=== PATIENT | male | born 1955 | race Caucasian/White ===

== ENCOUNTER 2018-03-05 08:02 | Emergency (ER) | payer OTHER ==
[~2018-03-05] VITALS: Ht 195.6 cm; Wt 111.1 kg
[~2018-03-05 08:02] MED LIST: DUTASTERIDE0.5 MG PO; FLAX; Percocet 5-3251 EACH PO; TAMS.4ER PO; Zofran Odt4 MG SL
[2018-03-05 08:34] LABS: BASOPHILS ABSOLUTE AUTO 0.03 K/mm3 (0.00-0.23); BASOPHILS PERCENT AUTO 1 % (0-2); EOSINOPHILS ABSOLUTE AUTO 0.03 K/mm3 (0.00-0.68); EOSINOPHILS PERCENT AUTO 1 % (0-6); Hematocrit 46.8 % (37.0-53.0); Hemoglobin 16.1 g/dL (13.5-17.5); IMMATURE GRAN ABSOLUTE AUTO 0.02 K/mm3 (0.00-0.10); IMMATURE GRAN PERCENT AUTO 0 % (0-1); LYMPHOCYTES ABSOLUTE AUTO 0.51 K/mm3 (0.84-5.20); LYMPHOCYTES PERCENT AUTO 8 % (21-46); MONOCYTES ABSOLUTE AUTO 0.63 K/mm3 (0.16-1.47); MONOCYTES PERCENT AUTO 10 % (4-13); Mean Corpuscular HGB 28.9 pg (26.0-34.0); Mean Corpuscular HGB Conc 34.4 g/dL (31.5-36.5); Mean Corpuscular Volume 84 fL (80-100); Mean Platelet Volume 10.4 fL (9.1-12.4); NEUTROPHILS ABSOLUTE AUTO 5.24 K/mm3 (1.96-9.15); NEUTROPHILS PERCENT AUTO 81 % (41-73); Platelet Count 189 K/mm3 (150-400); RDW Coefficient Variation 12.5 % (11.7-14.2); RDW Standard Deviation 37.8 fL (35.1-46.3); Red Blood Cell Count 5.57 M/mm3 (4.30-5.90); White Blood Cell Count 6.46 K/mm3 (4.00-11.30)
[2018-03-05] MEDS ORDERED: CLON.1 PO (08:44)
[2018-03-05 08:57] LABS: Albumin, Blood 3.5 g/dL (3.4-5.0); Albumin/Globulin Ratio 1.1 (0.8-1.8); Bilirubin, Total 1.2 mg/dL (0.1-1.0); Bun/Creatinine Ratio 18.5 (12.0-20.0); Creatinine, Blood 1.35 mg/dL (0.60-1.20); Globulin, Blood 3.3 g/dL (2.2-4.0); Potassium, Blood 4.1 mmol/L (3.5-5.5); Total Protein, Blood 6.8 g/dL (6.4-8.2)
[2018-03-05 10:04] LABS: Source, Urine Clean Catch
[2018-03-05 10:11] LABS: Bilirubin, Urine Neg (Neg); Blood, Urine 5+ (Neg); Glucose Qualitative, Urine Neg (Neg); Ketones, Urine 1+ (Neg); Leukocyte Esterase, Urine 1+ (Neg); Nitrite, Urine Neg (Neg); Protein, Urine 2+ (Neg); Urobilinogen, Urine NORM (Normal)
[2018-03-05 10:21] LABS: Appearance, Urine Hazy (Clear); Color, Urine Yellow (P-Yellow); Squamous Epithelial Cells Few /hpf (Few)
[2018-03-05 10:22] LABS: Bacteria Rare /hpf; Mucus Light (0-Heavy)
[2018-03-05] MEDS ORDERED: Cipro500 MG PO (10:36)
[2018-03-05] MEDS ORDERED: Percocet 5-3251 EACH PO (10:36)
== END 2018-03-05 11:17 | disposition home or self-care (01) ==
LOC: ER 08:02
PROVIDERS: Physician Assistant
DX: N13.2 Hydronephrosis with renal and ureteral calculous obstruction (principal); N12 Tubulo-interstitial nephritis, not specified as acute or chronic; I10 Essential (primary) hypertension
CPT/HCPCS: 36415; 74177; 80053; 81001; 83690; 85025; 87077; 87086; 87186; 96361; 96365; 96375; 96376; 99284-25; J0696; J1885; J2405; J3010; J7030; Q9967

== ENCOUNTER → 2020-11-23 | Outpatient (CLI) | payer OTHER ==
[~2020-11-23] MED LIST changes: +CLON.1 PO; +Cipro500 MG PO
== END | disposition home or self-care (01) ==
LOC: LAB SHORT 11:23
DX: D04.22 Carcinoma in situ of skin of left ear and external auricular canal (principal); L81.4 Other melanin hyperpigmentation; B88.0 Other acariasis
CPT/HCPCS: 88305

== ENCOUNTER → 2020-11-30 | Outpatient (CLI) | payer OTHER | LOC: LAB 12:00 → LAB SHORT 12:00 | DX: D48.5 Neoplasm of uncertain behavior of skin (principal) | CPT/HCPCS: 88305 ==

== ENCOUNTER → 2021-09-26 | Outpatient (CLI) | payer OTHER ==
[~2021-09-26] MED LIST changes: +Amlodipine Bes2.5 MG PO; +DUTA.5 PO
== END ==
LOC: LAB SHORT 07:00 → LAB 07:00 → LAB FUT 08-23 12:20
DX: N20.2 Calculus of kidney with calculus of ureter (principal)
CPT/HCPCS: 81050

== ENCOUNTER 2021-10-20 10:58 | Day surgery (SDC) | payer OTHER ==
[~2021-10-20] VITALS: Ht 195.6 cm; Wt 110.2 kg
--- NOTE | 2021-10-20 11:46 | NUR ---
10/20/21 1146 Mis Alejandro ATTEMPT IV X2 IN RFA & RH WITH 20G IV CATH. SUCCESSFUL IV IN RH BY [facility].JST. PT. TOLERATED WELL.
== END 2021-10-20 12:21 | disposition home or self-care (01) ==
LOC: ORSCSDS 10:58
PROVIDERS: Ophthalmology
PROC: 08RJ3JZ Replacement of Right Lens with Synthetic Substitute, Percutaneous Approach (ICD-10-PCS; principal; 2021-10-20 12:00)
DX: H25.11 Age-related nuclear cataract, right eye (principal); I10 Essential (primary) hypertension; Z79.899 Other long term (current) drug therapy
CPT/HCPCS: J2001; J2250; J3010; J3301; J7040; J7120; V2632